=== PATIENT | male | born 1950 | race Caucasian/White ===

== ENCOUNTER 2020-01-16 11:45 | Outpatient (REF) | payer MEDICARE, BC, SELFPAY ==
[2020-01-16 21:49] LABS: HCT 33.2 % (40.0-50.0); HGB 10.4 g/dL (13.5-17.5); Mean Corp. HGB Concentration 31.3 g/dL (32.0-36.0); Mean Corpuscular Hemoglobin 28.3 pg (27.0-33.0); Mean Corpuscular Volume 90.2 fL (80-95); Mean Platelet Volume 9.6 fL (8.0-11.0); Platelet Count 580 x1000/uL (130-400); RBC 3.68 m/cumm (4.50-6.00); RBC Distribution Width 17.4 % (11.8-14.1); White Blood Cell Count 7.17 k/cumm (4.4-10.8)
[2020-01-16 22:03] LABS: Anion Gap 9.3 mmol/L (3-11); BUN 10 mg/dL (7-18); CO2 25.7 mmol/L (21.0-32.0); CREATININE 0.85 mg/dL (0.70-1.30); Calcium 7.6 mg/dL (8.5-10.1); Chloride 106 mmol/L (98-107); Glucose 99 mg/dL (74-106); Potassium 4.3 mmol/L (3.5-5.1); Sodium 141 mmol/L (136-145); Uric Acid 4.2 mg/dL (3.5-7.2)
[2020-01-18 10:33] LABS: Cyclic Citrullinated Peptide <2.5 U/mL (<5.0)
== END 2020-01-16 12:05 ==
LOC: NCHCN 11:45
PROVIDERS: PCP Internal Medicine; Visit Provider Internal Medicine
DX: M10.9 Gout, unspecified (principal); M19.90 Unspecified osteoarthritis, unspecified site
CPT/HCPCS: 80048; 85027; 86200; 84550

== ENCOUNTER 2020-01-17 15:08 | Outpatient (REF) | payer MEDICARE, BC, SELFPAY ==
[2020-01-18 12:25] LABS: ALT 25 U/L (16-63); AST 22 U/L (15-37); Alkaline Phosphatase 115 U/L (46-116); Bilirubin, Total 0.3 mg/dL (0.2-1.0); Total Protein 6.9 g/dL (6.4-8.2); Vitamin B12 105 pg/mL (193-986)
[2020-01-18 12:39] LABS: Iron 37 ug/dL (65-175); Total Iron Binding Capacity 268 ug/dL (250-450); Transferrin Sat 14 % (20-55)
[2020-01-18 12:44] LABS: Bilirubin, Direct < 0.05 mg/dL (0.00-0.20)
[2020-01-19 11:14] LABS: Lyme Ab w Rflx to Lyme Confirm Negative (Negative)
== END 2020-01-17 15:28 ==
LOC: NCHCN 15:08
PROVIDERS: PCP Internal Medicine; Visit Provider Internal Medicine
DX: M25.50 Pain in unspecified joint (principal); E83.51 Hypocalcemia; D64.9 Anemia, unspecified
CPT/HCPCS: 80076; 82607; 83540; 83550; 86618

== ENCOUNTER 2020-05-23 10:58 | Outpatient (REF) | payer MEDICARE, BC, SELFPAY ==
[2020-05-23 20:32] LABS: HCT 34.1 % (40.0-50.0); HGB 10.5 g/dL (13.5-17.5); Mean Corp. HGB Concentration 30.8 g/dL (32.0-36.0); Mean Corpuscular Hemoglobin 26.6 pg (27.0-33.0); Mean Corpuscular Volume 86.3 fL (80-95); Mean Platelet Volume 9.5 fL (8.0-11.0); Platelet Count 530 x1000/uL (130-400); RBC 3.95 m/cumm (4.50-6.00); RBC Distribution Width 17.1 % (11.8-14.1); White Blood Cell Count 6.13 k/cumm (4.4-10.8)
[2020-05-23 20:51] LABS: Iron 29 ug/dL (65-175); Total Iron Binding Capacity 359 ug/dL (250-450); Transferrin Sat 8 % (20-55)
[2020-05-23 21:21] LABS: Vitamin B12 259 pg/mL (193-986)
== END 2020-05-23 11:18 ==
LOC: NCHCN 10:58
PROVIDERS: PCP Internal Medicine; Visit Provider Internal Medicine
DX: D50.9 Iron deficiency anemia, unspecified (principal); E53.8 Deficiency of other specified B group vitamins; R19.5 Other fecal abnormalities
CPT/HCPCS: 85027; 82607; 83540; 83550

== ENCOUNTER 2021-08-20 13:07 | Outpatient (REF) | payer MEDICARE, BC, SELFPAY ==
[2021-08-20 22:04] LABS: HCT 35.5 % (40.0-50.0); HGB 10.9 g/dL (13.5-17.5); MCH 26.9 pg (27.0-33.0); MCHC 30.7 % (32.0-36.0); MCV 87.7 fL (80-95); MPV 9.6 fL (8.0-11.0); Platelet Count 499 10^3/uL (130-400); RBC 4.05 10^6/uL (4.36-5.78); RDW-SD 48.6 fL; WBC 6.63 10^3/uL (4.4-10.8)
[2021-08-20 22:32] LABS: Anion Gap 5.3 mmol/L (3-11); BUN 12 mg/dL (7-18); CO2 28.7 mmol/L (21.0-32.0); Calcium 8.3 mg/dL (8.5-10.1); Chloride 109 mmol/L (98-107); Glucose 95 mg/dL (74-106); Potassium 4.4 mmol/L (3.5-5.1); Sodium 143 mmol/L (136-145); Uric Acid 8.6 mg/dL (3.5-7.2)
[2021-08-20 23:14] LABS: Ferritin 7 ng/mL (26-388); Vitamin B12 225 pg/mL (193-986)
== END 2021-08-20 13:08 | disposition home or self-care (01) ==
LOC: NCHCN 13:07
PROVIDERS: PCP Internal Medicine; Visit Provider Family Medicine
DX: D50.9 Iron deficiency anemia, unspecified (principal); E53.8 Deficiency of other specified B group vitamins; M10.9 Gout, unspecified; Z00.00 Encounter for general adult medical examination without abnormal findings
CPT/HCPCS: 80048; 85027; 82607; 82728; 84550

== ENCOUNTER 2023-11-30 20:39 | Outpatient (REF) | payer MEDICARE, SELFPAY | END 2023-11-30 20:40 | disposition home or self-care (01) | LOC: NCHCN 20:39 | PROVIDERS: PCP Family Medicine; Visit Provider Family Medicine | DX: N39.0 Urinary tract infection, site not specified (principal) | CPT/HCPCS: 87077; 87086; 87186 ==

== ENCOUNTER 2023-12-02 11:22 | Outpatient (REF) | payer MEDICARE, SELFPAY ==
[2023-12-02 14:48] LABS: Bilirubin Negative (Negative); Blood Negative (Negative); Clarity Clear (Clear); Glucose Negative (Negative); Ketones Negative (Negative); Leukocyte Esterase Negative (Negative); Nitrite Negative (Negative); Specific Gravity 1.015 (1.005-1.025); Urobilinogen 0.2 mg/dL (Up to 0.2)
== END 2023-12-02 11:23 | disposition home or self-care (01) ==
LOC: NCHCN 11:22
PROVIDERS: PCP Family Medicine; Visit Provider Family Medicine
DX: N39.0 Urinary tract infection, site not specified (principal)
CPT/HCPCS: 81003

== ENCOUNTER 2024-10-10 14:07 | Outpatient (REF) | payer MEDICARE, SELFPAY ==
[2024-10-10 15:09] LABS: HCT 36.7 % (40.0-50.0); HGB 11.4 g/dL (13.5-17.5); MCH 27.7 pg (27.0-33.0); MCHC 31.1 % (32.0-36.0); MCV 89 fL (80-95); MPV 9.5 fL (8.0-11.0); Platelet Count 408 10^3/uL (130-400); RBC 4.11 10^6/uL (4.36-5.78); RDW 16.1 % (11.8-14.1); RDW-SD 53.2 fL; WBC 5.92 10^3/uL (4.4-10.8)
[2024-10-10 17:25] LABS: ALT 40 U/L (16-63); AST 43 U/L (15-37); Albumin 3.2 g/dL (3.4-5.0); Alkaline Phosphatase 118 U/L (46-116); Anion Gap 8.8 mmol/L (3-11); BUN 10 mg/dL (7-18); CO2 25.2 mmol/L (21.0-32.0); CREATININE 0.9 mg/dL (0.70-1.30); Calcium 8.1 mg/dL (8.5-10.1); Chloride 108 mmol/L (98-107); Estimated GFR 89.62 (mL/min/1.73m2); Glucose 95 mg/dL (74-106); Potassium 4.7 mmol/L (3.5-5.1); Sodium 142 mmol/L (136-145); Total Protein 6.5 g/dL (6.4-8.2); Uric Acid 6.6 mg/dL (3.5-7.2)
[2024-10-11 09:53] LABS: PSA, Diagnostic 12.5 ng/mL (<=6.5)
== END 2024-10-10 14:08 | disposition home or self-care (01) ==
LOC: NCHCN 14:07
PROVIDERS: PCP Family Medicine; Visit Provider Family Medicine
DX: M10.9 Gout, unspecified (principal); R03.0 Elevated blood-pressure reading, without diagnosis of hypertension; D50.9 Iron deficiency anemia, unspecified; N40.1 Benign prostatic hyperplasia with lower urinary tract symptoms
CPT/HCPCS: 80053; 85027; 84153; 84550